=== PATIENT | female | born 1975 ===

== ENCOUNTER 2018-04-27 11:41 | Emergency (ER) | payer MEDICAID ==
[2018-04-27 11:53] VITALS: O2SAT 98
[2018-04-27 11:54] VITALS: BMI 33.4
--- NOTE | 2018-04-27 12:21 | ED PDOC ---
HPI: Psych/Substance Abuse Time Seen by Provider: 04/27/18 12:02 Chief Complaint (Nursing): Anxiety History Per: Patient, Roll Table Operator (Layla [id number]) History/Exam Limitations: no limitations Onset/Duration Of Symptoms: Days Current Symptoms Are (Timing): Still Present Additional Complaint(s): HX of HTN and "nerves" presenting with nervousness and feeling shaky. States she feels anxious about stressors in her life currently. Denies suicidal or homicidal thoughts. States that in senior living 6 months ago she was being prescribed anxiety medication but can't remember the name. States she has an appointment with her primary care doctor on 05/06/18. PMD: Clinic Past Medical History Reviewed: Historical Data, Nursing Documentation, Vital Signs Vital Signs: Last Vital Signs Temp 98 F 04/27/18 11:52 Pulse 90 04/27/18 11:52 Resp 18 04/27/18 11:52 BP 150/84 04/27/18 11:52 Pulse Ox 98 04/27/18 11:52 - Medical History PMH: Anxiety, HTN - Family History Family History: States: Unknown Family Hx - Home Medications Home Medications: Ambulatory Orders Medication Instructions Recorded Hydroxyzine Pamoate [Vistaril] 25 mg PO PRN PRN #20 capsule 04/27/18 - Allergies Allergies/Adverse Reactions: Allergies Allergy/AdvReac Type Severity Reaction Status Date / Time No Known Allergies Allergy Verified 04/27/18 12:07 Review of Systems ROS Statement: Except As Marked, All Systems Reviewed And Found Negative Psych: Positive for: Anxiety. Negative for: Depression, Psychosis, Suicidal ideation, Withdrawal Physical Exam - Reviewed Nursing Documentation Reviewed: Yes Vital Signs Reviewed: Yes - Physical Exam Appears: Positive for: Well, Non-toxic, No Acute Distress Head Exam: Positive for: ATRAUMATIC, NORMAL INSPECTION, NORMOCEPHALIC Skin: Positive for: Normal Color, Warm, DRY Eye Exam: Positive for: EOMI, Normal appearance, PERRL ENT: Positive for: Normal ENT Inspection Neck: Positive for: Normal, Painless ROM Cardiovascular/Chest: Positive for: Regular Rate, Rhythm Respiratory: Positive for: CNT, Normal Breath Sounds Gastrointestinal/Abdominal: Positive for: Normal Exam, Soft Back: Positive for: Normal Inspection Extremity: Positive for: Normal ROM Neurologic/Psych: Positive for: Alert, operations research scientist II-XII, Oriented, Mood/Affect (Calm, pleasant, happy). Negative for: Motor/Sensory Deficits - ECG O2 Sat by Pulse Oximetry: 98 Pulse Ox Interpretation: Normal Medical Decision Making Medical Decision Making: HX of HTN presenting with anxious feelings --PAtient is pleasant, calm, happy appearing, in no acute medical or psychiatric distress --Patient is not a danger to herself or others --Patient coherent, oriented --Will prescribe hydroxyzine and have patient followup as outpatient Disposition - Clinical Impression Clinical Impression: Anxiety - Disposition Referrals: [facility] [Outside] Disposition: Routine/Home Disposition Time: 12:21 Condition: GOOD Prescriptions: Hydroxyzine Pamoate [Vistaril] 25 mg PO PRN PRN #20 capsule PRN Reason: Anxiety Instructions: Anxiety, Adult (DC) Print Language: NICARAGUAN
[2018-04-27 12:40] VITALS: BP 140/76; PULSE 86; RESP 19; TEMP 97.6
== END 2018-04-27 12:45 | disposition home or self-care (01) ==
LOC: H.ER 11:41
DX: F41.9 Anxiety disorder, unspecified (principal)

== ENCOUNTER 2018-05-03 11:05 | Inpatient (IN) | payer MEDICAID ==
[2018-05-03 11:05] VITALS: BMI 33.4
--- NOTE | 2018-05-03 14:04 | ED PDOC ---
HPI: Psych/Substance Abuse Time Seen by Provider: 05/03/18 12:20 Chief Complaint (Nursing): Psychiatric Evaluation Chief Complaint (Provider): Psychiatric Evaluation History Per: Patient, Family (daughter) History/Exam Limitations: no limitations Onset/Duration Of Symptoms: Other (x2 weeks) Current Symptoms Are (Timing): Still Present Additional Complaint(s): 42 year old female presents to the ED accompanied by daughter for altered behavior for the past 2 weeks. Daughter, who is providing translation, reports mother spontaneously cries and also sometimes talks and argues with imaginary people. Denies any SI or HI. As per daughter, patient has no history of similar behavior. PMD: none Past Medical History Reviewed: Historical Data, Nursing Documentation, Vital Signs - Medical History PMH: Anxiety, HTN - Surgical History Surgical History: No Surg Hx - Family History Family History: States: Unknown Family Hx - Home Medications Home Medications: Ambulatory Orders Medication Instructions Recorded Hydroxyzine Pamoate [Vistaril] 25 mg PO DAILY PRN 05/03/18 - Allergies Allergies/Adverse Reactions: Allergies Allergy/AdvReac Type Severity Reaction Status Date / Time No Known Allergies Allergy Verified 04/27/18 12:07 Review of Systems ROS Statement: Except As Marked, All Systems Reviewed And Found Negative Psych: Positive for: Other (Altered behavior). Negative for: Suicidal ideation (or homicidal ideation) Physical Exam - Reviewed Nursing Documentation Reviewed: Yes Vital Signs Reviewed: Yes - Physical Exam Appears: Positive for: Non-toxic, No Acute Distress Head Exam: Positive for: ATRAUMATIC, NORMOCEPHALIC Skin: Positive for: Normal Color, Warm, Dry Eye Exam: Positive for: Normal appearance Neck: Positive for: Normal, Painless ROM Cardiovascular/Chest: Positive for: Regular Rate, Rhythm Respiratory: Positive for: Normal Breath Sounds. Negative for: Wheezing, Respiratory Distress Extremity: Positive for: Normal ROM Neurologic/Psych: Positive for: Alert, Oriented. Negative for: Motor/Sensory Deficits - Laboratory Results Result Diagrams: 05/03/18 16:30 05/03/18 16:30 - ECG ECG Rhythm: Positive for: Sinus Rhythm (normal) Interpretation Of ECG: No acute ischemic changes. qtc 416 ms. Rate: 64 Medical Decision Making Medical Decision Making: Initial Plan: --Crisis evaluation 14:00 Discussed with crisis who evaluated patient at bedside and pt. is to be admitted for schizoaffective, bipolar type. 17:17 Chest X-ray showed no acute findings. Scribe Attestation: Documented by Jonathan Holder acting as a scribe for Coty LOPEZ. Provider Scribe Attestation: All medical record entries made by the Scribe were at my direction and personally dictated by me. I have reviewed the chart and agree that the record accurately reflects my personal performance of the history, physical exam, medical decision making, and the department course for this patient. I have also personally directed, reviewed, and agree with the discharge instructions and disposition. Disposition - Clinical Impression Clinical Impression: Schizoaffective disorder, bipolar type - Patient ED Disposition Is Patient to be Admitted: Yes Counseled Patient/Family Regarding: Studies Performed, Diagnosis - Disposition Disposition Time: 18:13 Condition: STABLE
[2018-05-03 17:01] LABS: BASO # 0.1 K/uL (0.0-0.2); BASO % 1.3 % (0.0-2.0); EOS # 0.2 K/uL (0.0-0.7); EOS % 4.1 % (0.0-4.0); LYMPH # 2.6 K/uL (1.0-4.3); LYMPH % 45.1 % (20.0-40.0); MEAN CELL VOLUME 81.9 fl (81.0-99.0); MEAN CORPUSCULAR HGB CONC 31.7 g/dL (33.0-37.0); MONO # 0.5 K/uL (0.0-0.8); MONO % 9.3 % (0.0-10.0); NEUT # 2.3 K/uL (1.8-7.0); NEUT % 40.2 % (50.0-75.0); NRBC % 0.1 % (0.0-0.0); RBC 5.01 Mil/uL (3.80-5.20); RED CELL DISTRIBUTION WIDTH 13.7 % (11.5-14.5); WHITE BLOOD COUNT 5.7 K/uL (4.8-10.8)
[2018-05-03 17:09] LABS: SQUAMOUS EPITHIAL 3 /hpf (0-5); URINE BACTERIA RARE (<OCC); URINE BILIRUBIN NEGATIVE (NEGATIVE); URINE BLOOD NEGATIVE (NEGATIVE); URINE CLARITY SLIGHTY-CLOUDY (Clear); URINE COLOR YELLOW (YELLOW); URINE GLUCOSE (UA) NEG (NEGATIVE); URINE LEUKOCYTE ESTERASE NEG Leu/uL (Negative); URINE PROTEIN NEGATIVE (NEGATIVE); URINE UROBILINOGEN 0.2-1.0 mg/dL (0.2-1.0)
[2018-05-03 17:11] LABS: ALB/GLOB RATIO 1.3 (1.0-2.1); ALBUMIN 4.4 g/dL (3.5-5.0); ALT/SGPT 24 U/L (9-52); AST/SGOT 25 U/L (14-36); BLOOD UREA NITROGEN 12 mg/dl (7-17); CALCIUM 9.5 mg/dL (8.4-10.2); GFR NON-AFRICAN AMERICAN > 60
--- NOTE | 2018-05-03 17:11 | RAD ---
Date of service: 05/03/2018 HISTORY: psych admit COMPARISON: No prior. TECHNIQUE: Chest PA and lateral FINDINGS: LUNGS: No active pulmonary disease. PLEURA: No significant pleural effusion identified. No pneumothorax apparent. CARDIOVASCULAR: No aortic atherosclerotic calcification present. Normal cardiac size. No pulmonary vascular congestion. OSSEOUS STRUCTURES: No significant abnormalities. VISUALIZED UPPER ABDOMEN: Normal. OTHER FINDINGS: None. IMPRESSION: No active disease.
[2018-05-03 17:27] LABS: BARBITURATES, UR NEGATIVE (NEGATIVE); BENZODIAZEPINES, UR NEGATIVE (NEGATIVE); OPIATES, UR NEGATIVE (NEGATIVE); PHENCYCLIDINE, UR NEGATIVE (NEGATIVE)
[2018-05-03] MEDS ORDERED: DiphenhydrAMINE 50 mg/ml Inj IM PRN (21:15)
[2018-05-03] MEDS ORDERED: Alum-Mag Hydrox-Simethicone Susp (30 mL) PO PRN (21:15)
[2018-05-03] MEDS ORDERED: Magnesium Hydroxide Susp 30 ml UD PO PRN (21:15)
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
[2018-05-04 08:53] LABS: T4 7.87 ug/dl (5.5-11.0)
[2018-05-04] MEDS ORDERED: Influenza Vaccine (5 YR UP)/PF 60 MCG/0.5 ML SYR IM ONE (10:00)
[2018-05-04] MEDS ORDERED: Divalproex 500 mg DR(BID formulation) PO SCH ×2 (10:00→22:00)
--- NOTE | 2018-05-04 11:39 | CP.PCM.CON ---
History of Present Illness - History of Present Illness History of Present Illness: Medicine Consult 42-year-old female with PMH of "occasional" HTN (not medically managed) seen lying comfortably in bed with no complaints. Admitted for schizoaffective bipolar disorder, has no medical complaints at this time. Denies dizziness, headache, chest pain, shortness of breath, abdominal pain, constipation, diarrhea and new-onset edema. PMD: denies PMH: HTN (transient?) BP 116/76 on admission Surgical Hx: denies Medications: denies Allergy: NKDA Social: current cigarette smoker (7/day x 24 years), denies alcohol and illicit drugs Review of Systems - Constitutional Constitutional: absent: Fever - EENT Eyes: absent: Change in Vision - Cardiovascular Cardiovascular: absent: Chest Pain - Respiratory Respiratory: absent: Cough, Dyspnea - Gastrointestinal Gastrointestinal: absent: Constipation, Diarrhea - Genitourinary Genitourinary: absent: Dysuria - Neurological Neurological: absent: Abnormal Gait Past Patient History - Past Social History Smoking Status: DENIES - CARDIAC Hx Hypertension: Yes - PULMONARY Hx Tuberculosis: No - NEUROLOGICAL HX Cerebrovascular Accident: No Hx Seizures: No - HEMATOLOGICAL/ONCOLOGICAL Hx Cancer: No Hx Human Immunodeficiency Virus (HIV): No - GENITOURINARY/GYNECOLOGICAL Hx Sexually Transmitted Disorders: No - PSYCHIATRIC Hx Substance Use: No - SURGICAL HISTORY Hx Surgeries: No - ANESTHESIA Hx Anesthesia: No Meds Allergies/Adverse Reactions: Allergies Allergy/AdvReac Type Severity Reaction Status Date / Time No Known Allergies Allergy Verified 04/27/18 12:07 - Medications Medications: Current Medications Acetaminophen (Tylenol 325mg Tab) 650 mg PO Q4 PRN PRN Reason: pain 1-7 Al Hydrox/Mg Hydrox/Simethicone (Maalox Plus 30 Ml) 30 ml PO Q4 PRN PRN Reason: Dyspepsia Diphenhydramine HCl (Benadryl) 50 mg IM Q6 PRN PRN Reason: Extrapyramidal S/S Unable PO Diphenhydramine HCl (Benadryl) 50 mg PO HS PRN PRN Reason: Sleep Last Admin: 05/03/18 22:57 Dose: 50 mg Divalproex Sodium (Depakote Dr(*Bid*)) 500 mg PO BID CEZAR Haloperidol (Haldol) 5 mg PO Q4 PRN PRN Reason: Agitation Last Admin: 05/03/18 22:57 Dose: 5 mg Haloperidol Lactate (Haldol) 5 mg IM Q4 PRN PRN Reason: Agitation, Unable to Take PO Lorazepam (Ativan) 2 mg IM Q6 PRN PRN Reason: Anxiety/Agitation,Unable PO Lorazepam (Ativan) 1 mg PO Q8 PRN PRN Reason: Anxiety/Agitation Last Admin: 05/03/18 22:58 Dose: 1 mg Magnesium Hydroxide (Milk Of Magnesia) 30 ml PO HS PRN PRN Reason: Constipation Physical Exam - Constitutional Appears: Non-toxic, No Acute Distress - Head Exam Head Exam: NORMAL INSPECTION - Eye Exam Eye Exam: Normal appearance - ENT Exam ENT Exam: Mucous Membranes Moist - Neck Exam Neck exam: Positive for: Normal Inspection - Respiratory Exam Respiratory Exam: NORMAL BREATHING PATTERN - GI/Abdominal Exam GI & Abdominal Exam: absent: Tenderness - Neurological Exam Neurological exam: Alert - Psychiatric Exam Psychiatric exam: Depressed - Skin Skin Exam: Dry, Intact, Normal Color Results - Vital Signs Recent Vital Signs: Last Vital Signs Temp 97.1 F L 05/04/18 09:17 Pulse 77 05/04/18 09:17 Resp 18 05/04/18 09:17 BP 119/66 05/04/18 09:17 Pulse Ox - Labs Result Diagrams: 05/03/18 16:30 05/03/18 16:30 Labs: Laboratory Results - last 24 hr 05/03/18 05/03/18 05/03/18 16:20 16:20 16:30 WBC RBC Hgb Hct MCV MCH MCHC RDW Plt Count MPV Neut % (Auto) Lymph % (Auto) Isabela % (Auto) Eos % (Auto) Baso % (Auto) Neut # (Auto) Lymph # (Auto) Isabela # (Auto) Eos # (Auto) Baso # (Auto) Sodium 143 Potassium 3.7 Chloride 106 Carbon Dioxide 28 Anion Gap 13 BUN 12 Creatinine 0.7 Est GFR ( Amer) > 60 Est GFR (Non-Af Amer) > 60 Random Glucose 88 Calcium 9.5 Total Bilirubin 0.4 AST 25 ALT 24 Alkaline Phosphatase 66 Total Protein 7.9 Albumin 4.4 Globulin 3.5 Albumin/Globulin Ratio 1.3 Triglycerides Cholesterol LDL Cholesterol Direct HDL Cholesterol Thyroxine (T4) TSH 3rd Generation Urine Color Yellow Urine Clarity Slighty-cloudy Urine pH 6.0 Ur Specific Lyles 1.016 Urine Protein Negative Urine Glucose (UA) Neg Urine Ketones Trace Urine Blood Negative Urine Nitrate Negative Urine Bilirubin Negative Urine Urobilinogen 0.2-1.0 Ur Leukocyte Esterase Neg Urine RBC (Auto) 1 Urine Microscopic WBC < 1 Ur Squamous Epith Cells 3 Urine Bacteria Rare Urine Opiates Screen Negative Urine Methadone Screen Negative Ur Barbiturates Screen Negative Ur Phencyclidine Scrn Negative Ur Amphetamines Screen Negative U Benzodiazepines Scrn Negative U Oth Cocaine Metabols Negative U Cannabinoids Screen Negative Alcohol, Quantitative < 10 05/03/18 05/04/18 16:30 07:30 WBC 5.7 RBC 5.01 Hgb 13.0 Hct 41.0 MCV 81.9 MCH 26.0 L MCHC 31.7 L RDW 13.7 Plt Count 263 MPV 10.0 Neut % (Auto) 40.2 L Lymph % (Auto) 45.1 H Isabela % (Auto) 9.3 Eos % (Auto) 4.1 H Baso % (Auto) 1.3 Neut # (Auto) 2.3 Lymph # (Auto) 2.6 Isabela # (Auto) 0.5 Eos # (Auto) 0.2 Baso # (Auto) 0.1 Sodium Potassium Chloride Carbon Dioxide Anion Gap BUN Creatinine Est GFR ( Amer) Est GFR (Non-Af Amer) Random Glucose Calcium Total Bilirubin AST ALT Alkaline Phosphatase Total Protein Albumin Globulin Albumin/Globulin Ratio Triglycerides 78 Cholesterol 146 LDL Cholesterol Direct 96 HDL Cholesterol 39 Thyroxine (T4) 7.87 TSH 3rd Generation 1.84 Urine Color Urine Clarity Urine pH Ur Specific Lyles Urine Protein Urine Glucose (UA) Urine Ketones Urine Blood Urine Nitrate Urine Bilirubin Urine Urobilinogen Ur Leukocyte Esterase Urine RBC (Auto) Urine Microscopic WBC Ur Squamous Epith Cells Urine Bacteria Urine Opiates Screen Urine Methadone Screen Ur Barbiturates Screen Ur Phencyclidine Scrn Ur Amphetamines Screen U Benzodiazepines Scrn U Oth Cocaine Metabols U Cannabinoids Screen Alcohol, Quantitative Assessment & Plan - Assessment and Plan (Free Text) Plan: Schizoaffective (Bipolar type) - Management as per psych DVT Prophylaxis - Pt ambulates with steady gait
--- NOTE | 2018-05-04 16:10 | PCM.PSYCH ---
Initial Psychiatric Evaluation - Initial Psychiatric Evaluation Legal Status: Capacity Chief Complaint (in patient's own words): I need to go home to take care of my daughter History of Present Illness and Precipitating Events: pt is 42ys old female referred to ER by her daughter due to disorganized behavior pt has been noticed by her daughter to be internally preoccupied, she stated t daughter having auditory hallucinations, asking her to hurt self and others pt was also depressed and tearful, on evaluation pt was uncooperative , irritable, angry requesting to be discharged, reported having non command auditory hallucinations but refusing to elaborate on content , pt denied any current suicidal or homicidal ideation, appeared responding to internal stimuli collateral senior information security engineer spoke w/ the patients daughter, Hola, for collateral information. For the last two weeks, Hola has observed her mother talking to herself, and when she would ask her who is she having a conversation w/, pt admits to hearing voices. Hola has also observed her mother hugging and having a conversation w/ someone especially at night. Hola has informed her daughter that these behaviors are normal. According to Hola, they were giving her medications when she was incarcerated, but does not know the name of her medications. Hola has also observed her mother crying, but would then tell her to let her cry. The patient has been defensive as per Hola every time she would ask her mother about what occurred in [facility]. Current Medications: Active Medications Generic Name Dose Route Start Last Admin Trade Name Freq PRN Reason Stop Dose Admin Acetaminophen 650 mg 05/03/18 21:15 Tylenol 325mg Tab PO Q4 PRN pain 1-7 Al Hydrox/Mg Hydrox/Simethicone 30 ml 05/03/18 21:15 Maalox Plus 30 Ml PO Q4 PRN Dyspepsia Diphenhydramine HCl 50 mg 05/03/18 21:15 Benadryl IM Q6 PRN Extrapyramidal S/S Unable PO Diphenhydramine HCl 50 mg 05/03/18 21:15 05/03/18 22:57 Benadryl PO 50 mg HS PRN Administration Sleep Divalproex Sodium 500 mg 05/05/18 09:00 Glory Christianson(*Bid*) PO DAILY CEZAR Divalproex Sodium 500 mg 05/04/18 22:00 Glory Christianson(*Bid*) PO HS CEZAR Haloperidol 5 mg 05/03/18 21:15 05/03/18 22:57 Haldol PO 5 mg Q4 PRN Administration Agitation Haloperidol Lactate 5 mg 05/03/18 21:15 Haldol IM Q4 PRN Agitation, Unable to Take PO Lorazepam 2 mg 05/03/18 21:15 Ativan IM Q6 PRN Anxiety/Agitation,Unable PO Lorazepam 1 mg 05/03/18 21:15 05/03/18 22:58 Ativan PO 1 mg Q8 PRN Administration Anxiety/Agitation Magnesium Hydroxide 30 ml 05/03/18 21:15 Milk Of Magnesia PO HS PRN Constipation Past Psychiatric History - Past Psychiatric History Explanation of prior treatment: pt reported one previous hospitalization, unable to give details History of ETOH/Drug Use: denied Pertinent Medical Hx (Current Medical&Sleep Prob, Allergies): Allergies Allergy/AdvReac Type Severity Reaction Status Date / Time No Known Allergies Allergy Verified 04/27/18 12:07 Hydroxyzine Pamoate [Vistaril] 25 mg PO DAILY PRN 05/03/18 Mental Status Examination - Personal Presentation Personal Presentation: Looks stated age - Affect Affect: Constricted, Depressed Additional comments: irritable, angry - Motor Activity Motor Activity: Psychomotor Agitation - Reliability in Providing Information Reliability in Providing Information: Poor, due to alteration in thoughts, Poor, due to altered mood - Speech Speech: Tangential - Mood Mood: Depressed, Anxious - Formal Thought Process Formal Thought Process: Hallucinations, Circumstantial - Obsessions/Compulsions Obsessions: No Compulsions: No - Cognitive Functions Orientation: Person, Place Sensorium: Alert Attention/Concentration: Easily distracted Abstract Thinking: [place] Judgement: Imparied, as evidence by: Lack of insight into illness - Risk Risk: Diminished functioning - Strength & Assets Inventory Strength & Assets Inventory: Life experience - Limitations Additional comments: poor compliance DSM 5 DX - DSM 5 DSM 5 Diagnosis: psychotic disorder rule out major depression with psychosis rule out schizophrenia - Recommended/Plan of Treatment Treatment Recommendations and Plan of Treatment: depakote 500mg bid abilify 5mg daily increase gradually cbt group and supportive therapy
--- NOTE | 2018-05-04 20:23 | CARD ---
APPROVED REPORT Date of service: 05/03/2018 EKG Measurement Heart [id number] <Conclusion> Normal sinus rhythm Normal ECG
[2018-05-05] MEDS ORDERED: Divalproex 500 mg DR(BID formulation) PO SCH (09:00)
--- NOTE | 2018-05-05 14:31 | PCM.PYCHPN ---
Psychiatric Progress Note - Psychiatric Progress Note Patient seen today, length of contact: pt evaluated discussed with team chart reviewed Patient Chief Complaint: I am depressed because I have a lot to take care of Problems Identified/Issues Discussed: pt evaluated with treatment team presenting with depressed mood and tearful affect, reported going through lot of stresses including conflict with room mates financial difficulties and recent immigration from [place] , with the need to provide for her daughter, pt reported having non command auditory hallucinations, , at times putting her down, denied current thoughts of self harm, no reported side effects of medications Medical Problems: pt reported one previous hospitalization, unable to give details DSM 5 Symptoms Update: major depression Medication Change: Yes (discontinue depakote ) Medical Record Reviewed: Yes Mental Status Examination - Cognitive Function Orientation: Person, Place, Situation Attention: WNL Concentration: WNL Association: WNL Fund of Knowledge: WNL Decription of patient's judgement and insights: partial insight , fair judgment - Mood Mood: Depressed, Anxious - Affect Affect: Constricted, Depressed - Speech Speech: Appropriate - Formal Thought Process Formal Thought Process: Hallucinations, Circumstantial - Suicidal Ideation Suicidal Ideation: No - Homicidal Ideation Homicidal Ideation: No Goal/Treatment Plan - Goal/Treatment Plan Need for Continued Stay: Discharge may exacerbated symptoms Progress Toward Problem(s) and Goals/Treatment Plan: discontinue depakote abilify 10mg daily increase gradually, encourage compliance cbt group and supportive therapy
[2018-05-06 09:11] VITALS: RESP 18
--- NOTE | 2018-05-06 15:10 | PCM.PYCHPN ---
Psychiatric Progress Note - Psychiatric Progress Note Patient seen today, length of contact: pt evaluated discussed with team chart reviewed Patient Chief Complaint: I feel better Problems Identified/Issues Discussed: pt evaluated , reported better mood, presenting with brighter affect, reported clearing off of the auditory hallucinations, discussed with pt importance of compliance with treatment on discharge , no reported side effects , pt denied current thoughts of self harm, no reported side effects of medications Medical Problems: pt reported one previous hospitalization, unable to give details DSM 5 Symptoms Update: major depression with psychotic features Medication Change: No Medical Record Reviewed: Yes Mental Status Examination - Cognitive Function Orientation: Person, Place, Situation Attention: WNL Concentration: WNL Association: WNL Fund of Knowledge: [facility] Decription of patient's judgement and insights: partial insight , fair judgment - Mood Mood: Depressed, Anxious - Affect Affect: Constricted, Depressed - Speech Speech: Appropriate - Formal Thought Process Formal Thought Process: Hallucinations, Circumstantial - Suicidal Ideation Suicidal Ideation: No - Homicidal Ideation Homicidal Ideation: No Goal/Treatment Plan - Goal/Treatment Plan Need for Continued Stay: Discharge may exacerbated symptoms Progress Toward Problem(s) and Goals/Treatment Plan: abilify 10mg daily cbt group and supportive therapy
[2018-05-07 11:17] VITALS: BP 133/69; PULSE 83; TEMP 97.2
[2018-05-07] MEDS ORDERED: Influenza Vaccine (5 YR UP)/PF 60 MCG/0.5 ML SYR IM ONE (12:01)
--- NOTE | 2018-05-07 13:51 | PCM.PYCHDC ---
Mental Status Examination - Mental Status Examination Orientation: Person, Place, Situation Memory: Intact Mood: Neutral Affect: Broad Speech: Appropriate Attention: WNL Concentration: WNL Association: WNL Fund of Knowledge: WNL Formal Thought Process: No Impairment Description of patient's judgement and insight: partial insight , fair judgment Psychotic Thoughts and Behaviors: pt on discharge denied psychotic symptoms, non elicited Suicidal Ideation: No Current Homicidal Ideation?: No Discharge Summary - Discharge Note Reason for Hospitalization: pt is 42ys old female referred to ER by her daughter due to disorganized behavior pt has been noticed by her daughter to be internally preoccupied, she stated t daughter having auditory hallucinations, asking her to hurt self and others pt was also depressed and tearful, on evaluation pt was uncooperative , irritable, angry requesting to be discharged, reported having non command auditory hallucinations but refusing to elaborate on content , pt denied any current suicidal or homicidal ideation, appeared responding to internal stimuli collateral information manager spoke w/ the patients daughter, Hola, for collateral information. For the last two weeks, Hola has observed her mother talking to herself, and when she would ask her who is she having a conversation w/, pt admits to hearing voices. Hola has also observed her mother hugging and having a conversation w/ someone especially at night. Hola has informed her daughter that these behaviors are normal. According to Hola, they were giving her medications when she was incarcerated, but does not know the name of her medications. Hola has also observed her mother crying, but would then tell her to let her cry. The patient has been defensive as per Hola every time she would ask her mother about what occurred in nursing home. Consultations:: List each consultation separately and include: 1. Reason for request. 2. Findings. 3. Follow-up Summary of Hospital Course include:: 1. Description of specific treatment plan utilized for patients during their course of treatmen. 2. Summarize the time- course for resolution of acute symptoms and/or regressed behaviors. 3. Describe issues identified and worked on during hospitalization. 4. Describe medication utilized. 5. Describe medical problems identified and treated. 6. Reassessment of suicide risk Summary of Hospital Course: pt ion admission presented with depressed mood and irritable affect, was guarded and paranoid, reported non command auditory hallucinations, pt was started on abilify , uptitrated to 10mg CBT group and supportive therapy was provided pt was compliant with medications and treatment, no reported side effects , on discharge mental status was stable, pt denied any current suicidal or homicidal ideation denied perceptual disturbances follow up arranged by manager social services at [facility] outpatient - Diagnosis (1) Depression Current Visit: Yes Status: Acute - Final Diagnosis (DSM 5) Condition upon Discharge: STABLE DSM 5: major depression recurrent severe with psychotic features Disposition: HOME/ ROUTINE Follow-up Treatment Plan: abilify 10mg daily cbt group and supportive therapy Prescriptions/Medication Reconciliation: RX: ARIPiprazole [Abilify] 10 mg PO HS 30 Days #30 tab - Smoking Cessation Smoking Cessation Medication prescribed: No - Antipsychotic Medications Pt discharged on 2 or more routine antipsychotic medications: No
== END 2018-05-07 14:02 | disposition home or self-care (01) | DRG 430 ==
LOC: H.ER 11:05 → H.ERHOLD 16:18 → H.PSYCH 21:13
PROVIDERS: ADMIT Psychiatry & Neurology Psychiatry; ATTEND Psychiatry & Neurology Psychiatry
PROC: GZHZZZZ Group Psychotherapy (ICD-10-PCS; principal; 2018-05-03)
PROC: GZ58ZZZ Individual Psychotherapy, Cognitive-Behavioral (ICD-10-PCS; 2018-05-03)
PROC: GZ56ZZZ Individual Psychotherapy, Supportive (ICD-10-PCS; 2018-05-03)
PROC: 3E02340 Introduction of Influenza Vaccine into Muscle, Percutaneous Approach (ICD-10-PCS; 2018-05-07)
DX: F33.3 Major depressive disorder, recurrent, severe with psychotic symptoms (principal); I10 Essential (primary) hypertension; F17.210 Nicotine dependence, cigarettes, uncomplicated; Z23 Encounter for immunization